=== PATIENT | male | born 1975 | race Caucasian/White ===

== ENCOUNTER 2024-02-21 08:51 | Day surgery (SDC) | payer BC ==
[~2024-02-21] VITALS: Ht 170.2 cm; Wt 101.9 kg
[~2024-02-21 08:51] MED LIST: BLOOD PRESSURE MED; HCTZ 25MG TAB25 MG PO; LR 1,000 ML IV SCH; Ondansetron 4 MG/2 ML VIAL IV PRN; PERCOCET 325 MG1 TA2 PO; ZOFRAN ODT4 MG PO
[2024-02-21] MEDS ORDERED: PRINZIDE 25 MG-1 TAB PO (10:15)
[2024-02-21 10:37] VITALS: BP 126/77; PULSE 80; TEMP 97.7
[2024-02-21] MEDS ORDERED: Lidocaine PF 2% (20 MG/ML) 5 ML VIAL ONE (11:55)
[2024-02-21 12:35] VITALS: BP 104/62; PULSE 76; TEMP 97.5
[2024-02-21 12:50] VITALS: BP 110/65; PULSE 68
--- NOTE | 2024-02-21 13:05 | NUR ---
1235 RETURNS TO ROOM 4 PER CART. AWAKE, ALERT. RESP UNLABORED. AMBULATES TO RECLINER WITH STANDBY ASSIST. DENIES NAUSEA OR ABD PAIN. VITAL SIGNS OBTAINED. CALL LIGHT AT SIDE. IN ROOM 1237 DR. GNOZALEZ HERE TO VISIT WITH PATIENT [address] WITHOUT NAUSEA. DISCHARGE INSTRUCTIONS REVIEWED. PATIENT VERBALIZES UNDERSTANDING. COPY PROVIDED IN DISCHARGE FOLDER 1300 DRESSES SELF
== END 2024-02-21 13:05 | disposition home or self-care (01) ==
LOC: SDCO 08:51
DX: Z12.11 Encounter for screening for malignant neoplasm of colon (principal); Z87.891 Personal history of nicotine dependence
CPT/HCPCS: J2704; J7120